=== PATIENT | female | born 1950 | race Two or more races ===

== ENCOUNTER 2021-10-24 11:05 | Outpatient (CLI) | payer OTHER | END 2021-10-24 11:10 | disposition home or self-care (01) | LOC: RAD 11:05 | PROVIDERS: ATTEND Orthopaedic Surgery | DX: M75.52 Bursitis of left shoulder (principal) ==

== ENCOUNTER 2021-11-02 09:02 | Outpatient (CLI) | payer OTHER | END 2021-11-02 09:40 | disposition home or self-care (01) | LOC: MRI 09:02 | PROVIDERS: ATTEND Orthopaedic Surgery | DX: M75.52 Bursitis of left shoulder (principal) | CPT/HCPCS: 73221 ==

== ENCOUNTER 2024-01-13 11:52 | Outpatient (CLI) | payer OTHER | END 2024-01-13 11:59 | disposition home or self-care (01) | LOC: SONOGRAMA 11:52 | PROVIDERS: ATTEND Specialist | DX: E03.9 Hypothyroidism, unspecified (principal) ==